=== PATIENT | male | born 1950 | race Caucasian/White ===

== ENCOUNTER 2023-01-05 09:12 | Day surgery (SDC) | payer OTHER ==
[~2023-01-05] VITALS: Ht 172.7 cm; Wt 80.0 kg
[~2023-01-05 09:12] MED LIST: SODIUM CHLORIDE 0.9% 1,000 ML IV ONE; SODIUM CHLORIDE 0.9% 1,000 ML ONE
[2023-01-05] MEDS ORDERED: AMIL5TAB8 PO (09:36)
[2023-01-05] MEDS ORDERED: ASPI-1450 PO (09:37)
[2023-01-05] MEDS ORDERED: METF-1211 PO (09:38)
[2023-01-05] MEDS ORDERED: DALF10TA PO (09:38)
[2023-01-05] MEDS ORDERED: NITR50CA3 PO (09:39)
[2023-01-05] MEDS ORDERED: PHEN-846 PO (09:40)
[2023-01-05] MEDS ORDERED: DEXT1CAP3 PO (09:40)
[2023-01-05] MEDS ORDERED: TAMS-13 PO (09:41)
[2023-01-05] MEDS ORDERED: ROSU20TA73 PO (09:41)
[2023-01-05] MEDS ORDERED: CHOL500043 PO (09:43)
[2023-01-05 09:51] LABS: GLUCOMETER DEV NAME(LOC) SDS.; GLUCOSE,POINT OF CARE 121 MG/DL (70-110)
== END 2023-01-05 11:55 | disposition home or self-care (01) ==
LOC: SURGERY 09:12
PROVIDERS: ATTEND Specialist
DX: Z12.11 Encounter for screening for malignant neoplasm of colon (principal); K64.8 Other hemorrhoids; Z80.0 Family history of malignant neoplasm of digestive organs; Z79.899 Other long term (current) drug therapy; I10 Essential (primary) hypertension; E11.9 Type 2 diabetes mellitus without complications; Z98.890 Other specified postprocedural states
CPT/HCPCS: 45378; 82962; J7030